=== PATIENT | male | born 1985 | race Two or more races ===

== ENCOUNTER 2017-03-13 03:01 | Emergency (ER) | payer OTHER ==
[~2017-03-13] VITALS: Ht 182.9 cm; Wt 85.4 kg
[2017-03-13 03:25] LABS: HEMATOCRIT 43.2 % (38.0-50.0); MCHC 33.8 G/DL (30.0-36.0); MCV 94.7 FL (86-99); MEAN PLAT.VOLUME 9.9 uM^3 (9.0-12.4); PLATELET COUNT 219 K/uL (156-360); RBC DIS.WIDTH-CV 13.2 % (11.8-14.6); RBC DIS.WIDTH-SD 45.7 % (39-53); RED BLOOD COUNT 4.56 M/uL (4.00-5.50); WHITE BLOOD COUNT 8.2 K/uL (4.1-10.2)
[2017-03-13 03:27] LABS: CHLORIDE 106 mEq/L (99-109); POTASSIUM 3.9 mEq/L (3.7-5.4); SODIUM 140 mEq/L (136-147)
[2017-03-13 03:30] LABS: GLUCOSE 116 mg/dL (70-99)
[2017-03-13 03:31] LABS: ANION GAP 11 MEQ/L (2-14); TOTAL BILIRUBIN 0.4 mg/dL (0.0-1.0)
[2017-03-13 03:33] LABS: ALKALINE PHOSPHATASE 68 IU/L (3-129); GFR ESTIMATE (CALCULATED) > 59 mL/min/; SERUM ETHYL ALCOHOL 194 mg/dL
[2017-03-13 03:34] LABS: UREA NITROGEN (BUN) 19 mg/dL (9-23)
[2017-03-13 07:07] VITALS: BP 110/61
== END 2017-03-13 07:16 | disposition home or self-care (01) ==
LOC: EME 03:01
PROVIDERS: Emergency Medicine
DX: F10.129 Alcohol abuse with intoxication, unspecified (principal); Y90.6 Blood alcohol level of 120-199 mg/100 ml
CPT/HCPCS: 80053; 81003; 85027; 99281; 99284; G0480; J7030